=== PATIENT | female | born 1960 | race Caucasian/White ===

== ENCOUNTER 2025-01-27 07:58 | Outpatient (AMB) | payer MEDICARE, SELFPAY ==
--- NOTE | 2025-01-27 08:12 | A.OFFPC_ITS ---
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 Past medical history includes osteoporosis diagnosed last year. Patient increased weight-bearing exercises since the diagnosis but it is not interested in taking medication. FOR[facility]LY [facility], [facility] Medical History (Updated 01/27/25 @ 09:08 by Roz Garcia MD) Varicose veins of both lower extremities Osteoporosis Normal pelvic exam Hx of screening mammography Surgical History (Updated 01/27/25 @ 08:40 by Roz Garcia MD) Hx of colonoscopy No pertinent past surgical history Family History (Updated 01/27/25 @ 08:43 by Roz Garcia MD) Father Lung cancer Mother Dementia, Onset Age: 73 Skin cancer Social History (Updated 01/27/25 @ 08:42 by Roz Garcia MD) Household Members Other:: , 3 children, 1 granddaughter. works at [employer], Housing: House Patient Tobacco Use Status: Never used Tobacco e-Cigarette/Vaping Use: Never Used service: No Current occupational status: employed and retired Cognitive needs: No Hearing needs: No Vision needs: Yes Questionnaire PHQ-9 Over the last 2 weeks, how often have you been bothered by any of the following problems? 1. Little interest or pleasure in doing things: not at all 2. Feeling down, depressed, or hopeless: not at all 3. Trouble falling or staying asleep, or sleeping too much: not at all 4. Feeling tired or having little energy: not at all 5. Poor appetite or overeating: not at all 6. Feeling bad about yourself - or that you are a failure or have let yourself or your family down: not at all 7. Trouble concentrating on things, such as reading the newspaper or watching television: not at all 8. Moving or speaking so slowly that other people could have noticed. Or the opposite - being so fidgety or restless that you have been moving around a lot more than usual: not at all 9. Thoughts that you would be better off or of hurting yourself in some way: not at all Total score: 0 Depression Screening Interpretation: Negative Depression Screening Done: Yes 05284 - PHQ-9 Billing: Yes Source: Developed by Drs. Darien Jaeger, Ana Maria Kern, Minor Smith and colleagues, with an educational lyndsay from [employer]. Thrive Questionnaire Date Thrive assessed: 01/27/25 I am a: Patient What is your living situation today?: I have a steady place to live Within the past 12 months, did the food you bought not last and you didn't have the money to get more?: Never true Within the past 12 months, did you worry whether your food would run out before you got money to buy more?: Never true Do you have trouble paying for medicines?: No Do you have trouble getting transportation to medical appointments?: No Do you have trouble paying your heating and electricity bill?: No Do you have trouble taking care of your child, family member or friend?: No Do you have trouble with day-to-day activities such as bathing, preparing meals, shopping, managing finances, etc.?: No Are you currently unemployed and looking for a job?: No Are you interested in more education?: No Please select the resources that you would like help with: None Currently or been in a relationship where the following occur: No concerns reported THRIVE Score: 0 AUDIT C Alcohol Use Questionnaire (AUDIT-C) 1. How often do you have a drink containing alcohol?: 2-4 times a month 2. How many drinks containing alcohol do you have on a typical day when you are drinking?: 1 or 2 3. How often do you have six or more drinks on one occasion?: Never Total Score: 2 SELENE-7 AMB Questionnaire SELENE-7 Date SELENE - 7 assessed: 01/27/25 Feeling nervous, anxious, or on edge: 0 = Not at all Not being able to stop or control worryin = Not at all Worrying too much about different things: 0 = Not at all Trouble relaxin = Not at all Being so restless that it is hard to sit still: 0 = Not at all Becoming easily annoyed or irritable: 0 = Not at all Feeling afraid as if something awful might happen: 0 = Not at all Total SELENE-7 score (0-4 normal; 5-9 mild; 10-14 moderate; 15-21 severe): 0 Source: Developed by Drs. Darien Jaeger, Ana Maria Kern, Minor Smith and colleagues, with an educational lyndsay from [employer]. SELENE-7 Assessment Billing SELENE-7 Assessment Tool: SELENE-7 Assessment 37183 Review of Systems Const All systems reviewed & are unremarkable except as noted in HPI and below Eyes Reports no additional complaints ENT Reports no additional complaints Card Reports no additional complaints Resp Reports no additional complaints GI Reports no additional complaints Reports no additional complaints Musc Reports no additional complaints Physical exam (Primary Care) Vital Signs: Last Vital Signs Temp 98.4 F 01/27/25 08:13 Pulse 71 01/27/25 08:13 Resp 18 01/27/25 08:13 BP 120/68 01/27/25 08:13 Pulse Ox 98 01/27/25 08:13 Oxygen Delivery Method Room Air 01/27/25 08:13 BMI result Body Mass Index 19.1 Tobacco/Smoking Status: Tobacco use Status Tobacco use date assessed 01/27/25 01/27/25 08:22 Patient Tobacco Use Status Never used Tobacco 01/27/25 08:22 e-Cigarette/Vaping Use Never Used 01/27/25 08:22 PHQ-9: PHQ-9 Score PHQ-9: Total score 0 01/27/25 08:22 Depression Screening Interpretation: Negative Thrive Assessment: Date of Thrive Assessment Date Thrive assessed 01/27/25 01/27/25 08:22 Currently or been in a relationship where the following occur: No concerns reported Const General: no acute distress HENMT Head: Yes normal to inspection Mouth: Normal oral and palatal mucosa present Throat: Yes posterior oropharynx normal Eyes General: appearance normal, both eyes and all related structures Neck Neck: Yes no lymphadenopathy and Yes supple Resp Effort & Inspection: normal respiratory effort Auscultation: clear to auscultation bilaterally Cardio Rhythm: regular rhythm Heart sounds: S1 normal heart sound present and S2 normal heart sound present GI Inspection: Yes normal to inspection Palpation (GI): Soft to palpation Percussion: Yes normal to percussion Auscultation: normal bowel sounds Coding Level of Care Code New Pt Level 4 (62200) Diagnoses Hx of colonoscopy Z98.890 Osteoporosis M81.0 Additional Codes SELENE-7 Assessment Billing - SELENE-7 Assessment Tool: SELENE-7 Assessment 35163 ([id number]) PHQ-9 - 69492 - PHQ-9 Billing: Yes ([id number]) Assessment & Plan Assessment & Plan (1) Hx of colonoscopy: Comment: [facility] 2019 normal, repeat 10 yrs Code(s): Z98.890 - Other specified postprocedural states Category: Surgical Plan: Patient will obtain records from [facility] (2) Osteoporosis: Comment: DEXA 07/2023 [facility] T score -2.8 L spine Code(s): M81.0 - Age-related osteoporosis without current pathological fracture Category: Medical Plan: Weight-bearing exercises, calcium rich diet and taking vitamin-D supplement discussed with the patient. She is not interested in medical treatment. Patient will have repeat DEXA in 2 years. She will have a fasting blood work today and obtain records from [facility]. Orders: Orders UA w Microscopic Today I83.93 - Asymptomatic varicose veins of bilateral lower extremities, Z00.00 - Encounter for general adult medical examination without abnormal findings Vitamin D 25-OH Total Today E55.9 - Vitamin D deficiency, unspecified, I83.93 - Asymptomatic varicose veins of bilateral lower extremities Comprehensive [place]. Panel Fast Today I83.93 - Asymptomatic varicose veins of bilateral lower extremities, Z00.00 - Encounter for general adult medical examination without abnormal findings Complete Blood Count Auto Diff Today I83.93 - Asymptomatic varicose veins of bilateral lower extremities, Z00.00 - Encounter for general adult medical examination without abnormal findings Lipid Panel Today I83.93 - Asymptomatic varicose veins of bilateral lower extremities, Z00.00 - Encounter for general adult medical examination without abnormal findings TSH reflex Free T4 Today I83.93 - Asymptomatic varicose veins of bilateral lower extremities, Z00.00 - Encounter for general adult medical examination without abnormal findings
[2025-01-27 08:13] VITALS: BP 120/68; PULSE 71; RESP 18; TEMP 36.9; O2SAT 98; BMI 19.1
== END 2025-01-27 09:02 | disposition home or self-care (01) ==
PROVIDERS: PCP Internal Medicine; Visit Provider Internal Medicine
DX: Z98.890 Other specified postprocedural states (principal); M81.0 Age-related osteoporosis without current pathological fracture

== ENCOUNTER 2025-01-27 07:58 | Outpatient (REF) | payer MEDICARE, SELFPAY ==
--- OUTSIDE RECORDS SUMMARY | 2025-01-27 09:46 | XMS_ITS | Clinical Summary ---
Author Organization [facility] Address [address] [place] [phone] Phone Care Team Providers Care Court Security Officer Name Role Phone Eb Thompson MD Primary Care Provid er Allergies No known active allergies Medications vitamin D3-vitamin K2, MK4, (K2 PLUS D3) 1,000-100 unit-mcg Tab Take by mouth. Active Active Problems Problem Noted Date Diagnosed Date Basal cell carcinoma (BCC) of right nasal sidewa ll 03/26/2023 Family History Medical History Relation Comments Basal cell carcinoma Mother Dementia Mother Relation Status Comments Mother Social History Tobacco Use Types Packs/Day Years Used Date Smoking Tobacco: Never Assessed Education Answer Date Recorded Are you interested in more education? Not on sanna e 02/27/2023 Are you concerned about learning? Not on file 02/27/2023 No 02/27/2023 No 02/27/2023 Digital Access Answer Date Recorded No 02/27/2023 No 02/27/2023 Reliable internet access at home? Not on file 02/27/2023 Device with a working camera? Not on file Comments Unknown Sex and Gender Information Value Date Recorded Sex Assigned at Not on file Legal Sex Female 2:46 PM EDT Gender Identity Not on file Sexual Orientation Not on file Last Filed Vital Signs Vital Sign Reading Time Taken Comments Blood Pressure 128/56 03/26/2023 2:15 PM EST Pulse 59 03/26/2023 2:15 PM EST Temperature - - Respiratory Rate - - Oxygen Saturation - - Inhaled Oxygen Concentration - - Weight 54.7 kg (120 lb 9.6 oz) 03/26/2023 2:15 P M EST Height 162.6 cm (5' 4 ) 03/26/2023 2:15 PM EST Body Mass Index 20.7 03/26/2023 2:15 PM EST Plan of Treatment Health Maintenance Due Date Last Done Comments Adult Td,Tdap Booster 1958 LIPID PANEL 1958 DEPRESSION SCREENING 1970 SMOKING Hx and SMOKELESS TOB ACCO SCREENING 09/02/1971 HEPATITIS C SCREENING 1976 MAMMOGRAM 1998 COLOGUARD 09/02/2003 COLONOSCOPY 09/02/2003 COLORECTAL CANCER SCREENING 09/02/2003 FIT TEST 09/02/2003 FOBT 09/02/2003 SIGMOIDOSCOPY 09/02/2003 VIRTUAL COLONOSCOPY 09/02/2003 PNEUMOCOCCAL VACCINES (50+ y ears) (1 of 1 - PCV) 2008 ZOSTER VACCINES (1 of 2) 2008 OSTEOPOROSIS SCREENING INITI AL (ONE-TIME) 09/02/2023 INFLUENZA VACCINE (#1) 2024 COVID-19 VACCINE (1 - 2023-2 5 season) 2024 RSV VACCINE (1 - 1-dose 75+ series) 2033 HEPATITIS A VACCINES Aged Out No long er eligible based on patient's age to complete this topic HIB VACCINES Aged Out No longer eligi ble based on patient's age to complete this topic MENINGOCOCCAL VACCINES (ACWY) Aged Out No longer eligible based on patient's age to complete this topic MENINGOCOCCAL VACCINES (B) Aged Out N o longer eligible based on patient's age to complete this topic Medical Devices Not on file Insurance [employer] [facility] PPO EPO [employer] [facility] PPO EPO [employer] [facility] PPO EPO [facility] [place] [id number] [facility] PPO EPO Care Teams Court Security Officer Relationship Specialty Start Date End Date Eb Thompson MD [address] [place] [address] [phone] PCP - General Internal Medicine 02/27/23 Additional Source Comments The information contained in this document represents components of the legal health record. It is not the complete legal health record.[facility]
[2025-01-27 10:03] LABS: MANUAL DIFF FLAG NO
[2025-01-27 10:10] LABS: Hematocrit 38.7 % (37.0-47.0); Hemoglobin 12.6 g/dl (12.0-16.0); Imm Gran Abs Auto 0.01 X10*3/uL (0.00-0.03); Imm Gran Pct Auto 0.2 % (0.0-0.4); Lymphocytes Absolute Auto 1.6 X10*3/uL (1.2-4.9); Mean Corpuscular HGB Conc 32.6 g/dl (31.0-35.0); Mean Corpuscular Hemoglobin 29.4 pg (27.0-33.0); Mean Corpuscular Volume 90.4 fL (80.0-98.0); NRBC Abs Auto 0.000 X10*3/uL (0.0-0.012); NRBC Pct Auto 0.0 /100WBC (0.0-0.2); Platelet Count 266 X10*3/uL (160-400); Red Blood Count 4.28 X10*6/uL (4.20-5.50); White Blood Count 4.3 X10*3/uL (4.8-10.8)
[2025-01-27 10:36] LABS: Appearance Urine Clear; Glucose Urine UA Negative (Negative); PH 7.0 (5.0-9.0); Specific Gravity - Urine <= 1.005 (1.005-1.025)
[2025-01-27 11:30] LABS: Alanine Aminotransferase 17 U/L (0-31); Albumin Level 4.5 g/dL (3.5-5.0); Alkaline Phosphatase 73 U/L (39-117); Anion Gap 11 (12-20); Aspartate Amino Transferase 27 U/L (5-31); Blood Urea Nitrogen 14 mg/dL (9-16); Calcium 9.4 mg/dL (8.4-10.2); Carbon Dioxide 30 mmol/L (22-29); Chloride 104 mmol/L (96-108); Cholesterol 216 mg/dL (<200); Estimated Glomerular Filt Rate > 60; HDL Cholesterol 79 mg/dL (>40); Potassium 4.0 mmol/L (3.3-5.1); Sodium 141 mmol/L (135-145); Total Protein 7.4 g/dL (6.5-8.0); Triglycerides 67 mg/dL (<150)
== END 2025-01-27 07:59 | disposition home or self-care (01) ==
LOC: HO.HMGCLDS 07:58
PROVIDERS: PCP Internal Medicine; Visit Provider Internal Medicine
DX: Z00.00 Encounter for general adult medical examination without abnormal findings (principal); I83.93 Asymptomatic varicose veins of bilateral lower extremities; M81.0 Age-related osteoporosis without current pathological fracture; Z98.890 Other specified postprocedural states
CPT/HCPCS: 36415; 80053; 80061; 81001; 84443; 85025; 96127; 99202

== ENCOUNTER 2025-02-02 12:52 | Outpatient (REF) | payer MEDICARE, SELFPAY ==
--- OUTSIDE RECORDS SUMMARY | 2025-02-02 15:46 | XMS_ITS | Clinical Summary ---
Author Organization [facility] Address [address] [address] [place] [phone] Phone Care Team Providers Care Civil Engineering Professional Name Role Phone Eb Thompson MD Primary [...] VACCINE (#1) 2024 COVID-19 VACCINE (1 - 2024-2 6 season) 2024 RSV VACCINE (1 - 1-dose [...] Medical Devices Not on file Insurance [facility] PPO EPO [employer] [facility] PPO EPO [facility] [facility] PPO EPO [facility] [place] [id number] [facility] PPO EPO Care Teams Civil Engineering Professional Relationship Specialty Start Date End Date Eb Thompson MD [address] [place] [address] [phone] PCP - General Internal Medicine 02/27/23 Additional Source Comments The information contained in this document represents components of the legal health record. It is not the complete legal health record.[facility]
== END 2025-02-02 12:53 | disposition home or self-care (01) ==
LOC: HO.HMGCLDS 12:52
PROVIDERS: PCP Internal Medicine; Visit Provider Internal Medicine
DX: Z00.00 Encounter for general adult medical examination without abnormal findings (principal); I83.93 Asymptomatic varicose veins of bilateral lower extremities; E55.9 Vitamin D deficiency, unspecified
CPT/HCPCS: 36415; 82306